=== PATIENT | female | born 1955 | race African-American/Black ===

== ENCOUNTER 2025-10-05 10:17 | Emergency (ER) | payer MEDICARE, OTHER, SELFPAY ==
[2025-10-05 10:23] VITALS: BP 128/84
[2025-10-05 11:05] LABS: Hematocrit 39.3 % (37.0-47.0); Hemoglobin 12.4 g/dL (12.0-16.0); Mean Corp Hgb Conc. 31.6 g/dL (33.0-37.0); Mean Corpuscular Volume 89.9 fL (81.0-99.0); Nucleated Red Blood Cells % 0 %; Platelet Count 251 10^3/uL (130-400); Red Cell Dist. Width 13.0 % (11.5-14.5)
[2025-10-05 11:15] LABS: Urine Character Clear (Clear)
[2025-10-05 11:24] LABS: ALT (SGPT) 17 U/L (0-35); AST (SGOT) 24 U/L (14-36); Albumin 4.6 g/dl (3.5-5.0); Alkaline Phosphatase 88 U/L (38-126); Blood Urea Nitrogen 13 mg/dl (7-17); Calcium 10.2 mg/dl (8.4-10.2); Carbon Dioxide 29 mmol/L (22-30); Chloride 100 mmol/L (98-107); Glucose 108 mg/dl (70-99); Potassium 4.6 mmol/L (3.5-5.1); Sodium 134 mmol/L (135-145); Total Protein 7.7 g/dl (6.3-8.2); eGFR > 60.00
[2025-10-05 11:50] LABS: Urine Red Blood Cell 0-2 /HPF (0-2)
[2025-10-05 11:51] LABS: Urine Urothelial Cell 0-2 /LPF (FEW)
--- NOTE | 2025-10-05 11:55 | ED.GENMED ---
History of Present Illness
General
Chief Complaint: Abdominal Pain
Source: patient
Time Seen by Provider: 10/05/25 11:27
History of Present Illness
History of Present Illness:
70-year-old female presents with the onset of lower abdominal discomfort with increased urinary frequency. She denies fevers chest pain or shortness of breath. No fevers or chills. She denies any hematuria or flank pain. She was nauseous without
vomiting. She notes no change in her bowel movements. No prior history of kidney stone. No other complaints at this time.
Phy Exam
Physical Exam
Physical Exam:
General: Well-appearing female no acute respiratory distress
HEENT: Normal cephalic atraumatic
Heart: Regular rate and rhythm
Lungs: Clear no wheeze
Abdomen is soft tender to the suprapubic area and left lower quadrant. No guarding nondistended
Skin is warm no rash
Course
Orders/Labs/Results
Orders:
Orders
10/05/25 10:51
IV Insert/Care/Rem.- Treatment PRN
10/05/25 10:55
Complete Blood Count/With Diff Urgent
Comprehensive Metabolic Panel Urgent
Urinalysis Reflex To Culture Urgent
Date Specimen was Collected: 10/05/25
Time Specimen was Collected: 10:52
Urine Microscopic Reflex Cult Urgent
10/05/25 11:53
CT Abd/pelvis W Iv Cont Urgent
Comment:
Reason For Exam: llq pain
10/05/25 12:08
HYDROmorphone [Dilaudid] 0.5 mg IV NOW STA
Abnormal Lab Results
10/05/25
10:55
WBC 13.0 H 10^3/uL
(4.8-10.8)
MCHC 31.6 L g/dL
(33.0-37.0)
Abs Immat Gran (auto) 0.1 H 10^3/uL
(0-0.05)
Absolute Neuts (auto) 10.2 H 10^3/uL
(1.4-6.5)
Absolute Monos (auto) 1.2 H 10^3/uL
(0.1-0.6)
Neutrophils % 78.2 H %
(42.2-75.2)
Lymphocytes % 11.8 L %
(20.5-51.1)
Sodium 134 L mmol/L
(135-145)
Glucose 108 H mg/dl
(70-99)
Ur Occult Blood Reflex 1+ A
(Negative)
Urine Albumin (Reflex) 2+ A
(Neg - Trace)
10/05/25 10:55
10/05/25 10:55
Vital Signs
Initial and Last Documented VS:
Initial Vital Signs
Temp Pulse Resp BP Pulse Ox
98.2 F 73 18 128/84 95
10/05/25 10:23 10/05/25 10:23 10/05/25 10:23 10/05/25 10:23 10/05/25 10:23
Last Documented Vital Signs
Temp Pulse Resp BP Pulse Ox
98.2 F 73 18 130/81 98
10/05/25 10:23 10/05/25 10:23 10/05/25 10:23 10/05/25 11:58 10/05/25 12:56
MDM/Problems Addressed
Differential Diagnosis Includes:
Lower abdominal pain and urinary symptoms. Consider UTI versus cystitis versus renal colic versus diverticulitis
Patient is somewhat more tender on the left lower abdomen. CT with IV contrast ordered. There is a small amount of blood in the urine but no sign of infection in the urine serum white blood cell count is 13. Patient did request something for pain
this was provided
*Pulse Oximetry
SaO2: 95
Oxygen Mode of Delivery: Room air
Patient hypoxic: no
*Critical Care Note
Total Time (30-74mins, 75-104mins- exclusive of procedures): Not Applicable
Update Note
Update Note:
CT demonstrates acute sigmoid diverticulitis without evidence of abscess. Will cover with Augmentin. No indication for admission. Stable for discharge.
ED Attending Note
-
Portions of this chart may have been created with voice recognition software.� Occasional wrong word or��sound alike� substitutions may have occurred due to the inherent limitations of voice recognition software.
Discharge Plan
Departure
Patient Disposition: Home (Routine Discharge)
Date of Disposition: 10/05/25
Time of Disposition: 13:26
Patient with high blood pressure during this ER visit?: No
Discharge Problem:
Acute diverticulitis
Instructions: Diverticulitis (DC)
Prescriptions:
New
amoxicillin-pot clavulanate 875-125 mg tablet
1 tab PO Q12H Qty: 20 0RF
Referrals:
Erika Villar MD [Family Provider, Internal Medicine]
Activity Restrictions/Additional Instructions:
Drink plenty of clear liquids. Use antibiotics as directed. Return if worse otherwise follow-up with your doctor
Interventions
Interventions:
*Risk Screen - Suicide Last Done: 10/05/25 10:23
*General Assessment Last Done: 10/05/25 12:02
*Neglect/Abuse Screening Last Done: 10/05/25 10:27
*ED- Fall Risk Assessment Last Done: 10/05/25 12:02
*ED COVID-19 Vaccine History Last Done: 10/05/25 12:02
*ED Influenza Vaccine History Last Done: 10/05/25 12:02
FI-Bozuox-Fqqgmgzvji Assessment Last Done: 10/05/25 12:03
Discharge Date and Time
Print Language: MICRONESIAN
[2025-10-05 11:58] VITALS: BP 130/81
[2025-10-05 12:01] VITALS: BMI 27.8
[2025-10-05] MEDS: DILAUDID 0.5 MG IV (12:10)
[2025-10-05 13:00] VITALS: BP 125/76
== END 2025-10-05 14:09 | disposition home or self-care (01) ==
LOC: EMR 10:17
PROVIDERS: EMERGENCY PHYSICIAN Emergency Medicine; FAMILY PHYSICIAN Internal Medicine
DX: K57.32 Diverticulitis of large intestine without perforation or abscess without bleeding (principal)
CPT/HCPCS: 99284; 96374; 74177; 80053; 81003; 81015; 85025; Q9967